=== PATIENT | female | born 1960 | race Caucasian/White ===

== ENCOUNTER 2017-05-25 03:47 | Emergency (ER) | payer MEDICAID ==
[~2017-05-25] VITALS: Ht 157.5 cm; Wt 79.4 kg
[2017-05-25 03:50] VITALS: BP_SYST 201
[2017-05-25] MEDS ORDERED: CYCLOBENZAPRINE HCL 10 MG TABLET (FLEXERIL) PO ONE (04:45)
[2017-05-25] MEDS ORDERED: KETOROLAC TROMETHAMINE 30 MG VIAL IM ONE (04:45)
[2017-05-25 05:38] VITALS: BP_SYST 190
== END 2017-05-25 05:38 | disposition home or self-care (01) ==
LOC: SED 03:47
DX: R10.30 Lower abdominal pain, unspecified (principal); I10 Essential (primary) hypertension; Z88.5 Allergy status to narcotic agent; Z88.6 Allergy status to analgesic agent
CPT/HCPCS: 96372; 99283; J1885

== ENCOUNTER 2018-04-07 20:47 | Emergency (ER) | payer MEDICAID ==
[~2018-04-07] VITALS: Ht 160 cm; Wt 77.1 kg
[2018-04-07 20:50] VITALS: BP_SYST 159
[2018-04-07] MEDS ORDERED: NACL 0.9% 1,000 ML IV ONE (20:57)
[2018-04-07] MEDS ORDERED: MORPHINE SULFATE 10 MG/ML VIAL IVP ONE (21:00)
[2018-04-07] MEDS ORDERED: ONDANSETRON HCL 4 MG/2 ML VIAL IVP ONE (21:00)
[2018-04-07 21:45] LABS: BASOPHILS % (AUTO) 0.4 % (0.0-2.0); EOSINOPHILS # (AUTO) 0.1 K/uL (0.0-0.4); EOSINOPHILS % (AUTO) 1.7 % (0.0-4.0); HEMATOCRIT 37.7 % (36-48); HEMOGLOBIN 12.9 g/dL (12.0-16.0); LYMPHOCYTES % (AUTO) 25.2 % (20.5-51.5); MEAN CORPUSCULAR HEMOGLOBIN 32 pg (27-31); MEAN CORPUSCULAR HGB CONC 34 % (32-36); MEAN CORPUSCULAR VOLUME 93 fL (79.0-98.0); MONOCYTES # (AUTO) 0.6 K/uL (0.0-1.0); MONOCYTES % (AUTO) 7.5 % (1.7-9.3); NEUTROPHILS # (AUTO) 5.2 K/uL (1.8-7.7); NEUTROPHILS % (AUTO) 65.2 % (40.0-70.0); PLATELET COUNT (AUTO) 216 K/uL (130-430); RED BLOOD CELL COUNT(AUTO) 4.07 MIL/uL (4.2-6.2); RED CELL DISTRIBUTION WIDTH 12.8 % (9.0-15.0); WHITE BLOOD COUNT (AUTO) 7.9 K/uL (4.8-10.8)
[2018-04-07 21:54] LABS: CALCIUM 9.3 mg/dL (8.4-11.0); CREATININE 0.79 mg/dL (0.55-1.30); POTASSIUM 3.3 mmol/L (3.5-5.1)
[2018-04-07 21:55] LABS: PROTHROMBIN TIME 9.8 SECS (9.5-12.5)
[2018-04-07 22:00] LABS: TOTAL BILIRUBIN 0.2 mg/dL (0.0-1.0)
[2018-04-07 23:12] VITALS: BP_SYST 159
== END 2018-04-07 23:12 | disposition home or self-care (01) ==
LOC: SED 20:47
DX: S70.01XA Contusion of right hip, initial encounter (principal); I10 Essential (primary) hypertension; E78.00 Pure hypercholesterolemia, unspecified; Z88.6 Allergy status to analgesic agent; W10.9XXA Fall (on) (from) unspecified stairs and steps, initial encounter; Y93.89 Activity, other specified; Y92.89 Other specified places as the place of occurrence of the external cause; Y99.8 Other external cause status
CPT/HCPCS: 36415; 72192; 73502; 80053; 82150; 83690; 85025; 85610; 85730; 96374; 96375; 99285; J2270; J2405; J7030

== ENCOUNTER 2019-09-15 20:15 | Emergency (ER) | payer MEDICAID ==
[~2019-09-15] VITALS: Ht 160 cm; Wt 74.8 kg
[2019-09-15 20:21] VITALS: BP_SYST 161
--- NOTE | 2019-09-15 20:21 | NUR ---
Patient triaged and placed in waiting room. VSS and patient appears in no acute distress at this time. Accompanied by son, awaiting available bed, and MD notified of need for MSE.
--- NOTE | 2019-09-15 21:25 | NUR ---
Note undone in EDM - 09/15/19 at 2231 by [email or web address] Patient complains of headache, /10 for the last week. Pt also complains of congestion and high blood pressure. Pt is noncompliant with blood pressure medications. Per patient she is currently on her seconday of the Zpak but does not feel any relief. No other injuries/complaints per patient or noted.
--- NOTE | 2019-09-15 22:21 | NUR ---
Patient to ER CHAIR 1 for evaluation. Side rails up. Report given to Otilio ADAME.
--- NOTE | 2019-09-15 22:25 | NUR ---
Patient complains of headache, 9/10 for the last week. Pt also complains of congestion and high blood pressure. Pt is noncompliant with blood pressure medications. Per patient she is currently on her seconday of the Zpak but does not feel any relief. No other injuries/complaints per patient or noted.
--- NOTE | 2019-09-15 22:34 | NUR ---
ER Dr. Muñoz at bedside examining patient.
[2019-09-15] MEDS ORDERED: cloNIDine HCL 0.1 MG TABLET PO ONE ×2 (22:45→23:45)
[2019-09-15] MEDS ORDERED: KETOROLAC TROMETHAMINE 60 MG/2 ML VIAL IM ONE (22:45)
--- NOTE | 2019-09-15 23:50 | NUR ---
BP was checked and it was 174/105. Dr. Long made aware.
--- NOTE | 2019-09-15 23:50 | NUR ---
Neelima vega in ED - 09/15/19 at 2357 by [email or web address] BP was checked and it was 174/105. Dr. Long made aware.
--- NOTE | 2019-09-15 23:53 | NUR ---
Medication was given, pt tolerated well. No adverse reaction, will continue to monitor.
--- NOTE | 2019-09-15 23:55 | NUR ---
Patient states pain has dropped from a 9/10 to 8/10. Per , pt received morphine last time for pain and is asking it patient can have morphine. Dr. Long made aware.
--- NOTE | 2019-09-15 23:55 | NUR ---
Note silvia in EDM - 09/15/19 at 2357 by [email or web address] Patient states pain has dropped from a 05/04 to 04/03. Per , pt received morphine last time for pain and is asking it patient can have morphine. Dr. Long made aware.
--- NOTE | 2019-09-16 00:20 | NUR ---
ER Dr. Long at bedside re-examining patient.
--- NOTE | 2019-09-16 00:51 | NUR ---
Re-checked Blood pressure: 124/79. Dr. Long made aware.
[2019-09-16] MEDS ORDERED: traMADol HCL HCL 50 MG TABLET (ULTRAM) PO ONE (01:00)
[2019-09-16] MEDS ORDERED: ONDANSETRON 4 MG ODT TAB PO ONE (01:00)
--- NOTE | 2019-09-16 01:15 | NUR ---
Patient given written and verbal discharge instructions and verbalizes understanding. ER MD discussed with patient the results and treatment provided. Patient in stable condition. ID arm band removed. Rx of MOTRIN,ZYRTEC,ATENOLOL given. Patient educated on pain management and to follow up with PMD. Pain Scale 0/10. Opportunity for questions provided and answered. Medication side effect fact sheet provided.
[2019-09-16 01:16] VITALS: BP_SYST 124
== END 2019-09-16 01:15 | disposition home or self-care (01) ==
LOC: SED 20:15
DX: J32.9 Chronic sinusitis, unspecified (principal); F43.9 Reaction to severe stress, unspecified; I10 Essential (primary) hypertension; E78.00 Pure hypercholesterolemia, unspecified; Z91.14 Patient's other noncompliance with medication regimen; Z88.5 Allergy status to narcotic agent; Z88.6 Allergy status to analgesic agent
CPT/HCPCS: 86710; 96372; 99284; J1885; Q0162; 36415

== ENCOUNTER 2021-05-21 15:43 | Emergency (ER) | payer OTHER, SELFPAY ==
[~2021-05-21] VITALS: Ht 160 cm; Wt 72.6 kg
[2021-05-21 16:06] VITALS: BP_SYST 140
[2021-05-21] MEDS ORDERED: NACL 0.9% 1,000 ML IV ONE (16:30)
[2021-05-21] MEDS ORDERED: ONDANSETRON HCL 4 MG/2 ML VIAL IVP ONE (16:30)
[2021-05-21] MEDS ORDERED: cefTRIAXone 250 MG VIAL IM ONE (16:30)
[2021-05-21] MEDS ORDERED: METOCLOPRAMIDE HCL 10 MG/2 ML VIAL IVP ONE (16:30)
[2021-05-21] MEDS ORDERED: AZITHROMYCIN 250 MG TABLET PO ONE (16:30)
[2021-05-21 17:02] LABS: BASOPHILS % (AUTO) 0.6 % (0.0-2.0); EOSINOPHILS # (AUTO) 0.2 K/uL (0.0-0.4); EOSINOPHILS % (AUTO) 2.3 % (0.0-4.0); HEMATOCRIT 40.3 % (36-48); LYMPHOCYTES # (AUTO) 1.4 K/uL (1.0-5.5); LYMPHOCYTES % (AUTO) 17.3 % (20.5-51.5); MEAN CORPUSCULAR HEMOGLOBIN 32 pg (27-31); MEAN CORPUSCULAR HGB CONC 35 % (32-36); MEAN CORPUSCULAR VOLUME 91 fL (79.0-98.0); MONOCYTES # (AUTO) 0.7 K/uL (0.0-1.0); MONOCYTES % (AUTO) 7.9 % (1.7-9.3); NEUTROPHILS % (AUTO) 71.9 % (40.0-70.0); PLATELET COUNT (AUTO) 230 K/uL (130-430); RED BLOOD CELL COUNT(AUTO) 4.42 MIL/uL (4.2-6.2); RED CELL DISTRIBUTION WIDTH 13.3 % (9.0-15.0); WHITE BLOOD COUNT (AUTO) 8.3 K/uL (4.8-10.8)
[2021-05-21 17:08] LABS: CALCIUM 9.6 mg/dL (8.4-11.0); CREATININE 0.92 mg/dL (0.55-1.30); POTASSIUM 3.3 mmol/L (3.5-5.1)
[2021-05-21 17:09] LABS: BILIRUBIN,URINE NEGATIVE (NEGATIVE); BLOOD, URINE 1+ (NEGATIVE); COLOR,URINE YELLOW (YELLOW); GLUCOSE,URINE NEGATIVE (NEGATIVE); KETONES,URINE TRACE (NEGATIVE); LEUKOCYTE ESTERASE ,URINE NEGATIVE (NEGATIVE); NITRITE, URINE NEGATIVE (NEGATIVE); PH,URINE 7.5 (5.0-8.0); PROTEIN URINE NEGATIVE (NEGATIVE); UROBILINOGEN,URINE 0.2 (0.2-1.0)
[2021-05-21 17:14] LABS: ALBUMIN 4.4 g/dL (3.4-4.8); TOTAL BILIRUBIN 0.3 mg/dL (0.0-1.0)
[2021-05-21 17:46] LABS: CLARITY/URINE HAZY (CLEAR)
[2021-05-21 17:56] LABS: BACTERIA,URINE FEW /HPF (None Seen); MUCUS,URINE None Seen /LPF (None Seen); WBC,URINE 0-3 /HPF (0-3)
[2021-05-21] MEDS ORDERED: ONDA4TAB5 PO (17:56)
[2021-05-21] MEDS ORDERED: METO-290 PO (17:56)
[2021-05-21 18:19] VITALS: BP_SYST 131
== END 2021-05-21 16:00 | disposition home or self-care (01) ==
LOC: SED 15:43
DX: K52.9 Noninfective gastroenteritis and colitis, unspecified (principal); I10 Essential (primary) hypertension; E78.00 Pure hypercholesterolemia, unspecified; Z88.5 Allergy status to narcotic agent; Z79.899 Other long term (current) drug therapy; Z20.822 Contact with and (suspected) exposure to COVID-19
CPT/HCPCS: 36415; 80053; 81000; 83690; 85025; 87040; 87426; 96361; 96374; 96375; 99284; J2405; J2765; J7030; Q0144; J0696